=== PATIENT | female | born 1955 | race Caucasian/White ===

== ENCOUNTER 2018-10-26 16:57 | Emergency (ER) | payer MEDICAID ==
[~2018-10-26] VITALS: Ht 152.4 cm; Wt 80.0 kg
[2018-10-26 17:08] VITALS: BP 152/79
== END 2018-10-26 20:00 | disposition left against medical advice (07) ==
LOC: ER 16:57
DX: Z53.21 Procedure and treatment not carried out due to patient leaving prior to being seen by health care provider (principal)